=== PATIENT | male | born 1940 | race Caucasian/White ===

== ENCOUNTER 2020-08-14 07:22 | Outpatient (CLI) | payer MEDICARE, BC | END 2020-08-14 23:59 | disposition home or self-care (01) | LOC: CFH 07:22 | PROVIDERS: ATTEND Internal Medicine Clinical Cardiac Electrophysiology | DX: I08.8 Other rheumatic multiple valve diseases (principal); I48.0 Paroxysmal atrial fibrillation | CPT/HCPCS: 93306 ==